=== PATIENT | female | born 1965 | race Caucasian/White ===

== ENCOUNTER 2018-11-24 12:44 | Emergency (ER) | payer SELFPAY | END 2018-11-24 13:11 | disposition home or self-care (01) | LOC: MADERS 12:44 | DX: L72.9 Follicular cyst of the skin and subcutaneous tissue, unspecified (principal); L08.9 Local infection of the skin and subcutaneous tissue, unspecified | CPT/HCPCS: 99283 ==

== ENCOUNTER 2022-09-24 20:55 | Emergency (ER) | payer SELFPAY ==
[2022-09-24] MEDS ORDERED: Sulfameth/Trimethoprim DS 800-160mg TAB ONE (21:35)
== END 2022-09-24 21:46 | disposition left against medical advice (07) ==
LOC: MADERS 20:55
DX: S01.01XA Laceration without foreign body of scalp, initial encounter (principal); Z53.29 Procedure and treatment not carried out because of patient's decision for other reasons; I10 Essential (primary) hypertension; F17.210 Nicotine dependence, cigarettes, uncomplicated
CPT/HCPCS: 70450

== ENCOUNTER 2023-01-18 18:09 | Emergency (ER) | payer OTHER, SELFPAY ==
[2023-01-18 18:54] LABS: #Basophils 0.2 thou/uL (0.0-0.2); #Eosinphils 0.3 thou/uL (0.0-0.7); #Lymphocytes 2.4 thou/uL (1.20-3.40); #Monocytes 0.6 thou/uL (0.11-0.59); %Basophils 1.8 % (0.0-1.0); %Eosinophils 3.6 % (0.0-10.0); %Lymphocytes 25.6 % (21.0-51.0); %Monocytes 6.2 % (0.0-10.0); %Neutrophils 62.9 % (42.0-75.0); Hematocrit 46.7 % (36.0-47.0); Hemoglobin 15.5 g/dL (12.0-16.0); Mean Corpuscular HGB CONC 33.1 g/dL (32.0-36.0); Mean Corpuscular Hemoglobin 28.7 pg (27.0-31.0); Mean Corpuscular Volume 86.7 fl (78.0-98.0); Mean Platelet Volume 8.3 fL (7.4-10.4); Platelet Count 327 10x3/uL (130-400); RBC Distribution Width 12.5 % (11.5-14.5); Red Blood Cell (RBC) Count 5.39 mill/uL (4.20-5.40); White Blood Cell (WBC) Count 9.5 10x3/uL (4.8-10.8)
[2023-01-18 18:58] LABS: INR-International Normal Ratio 0.9; Prothrombin Time 12.5 sec (12.0-14.7)
[2023-01-18 18:59] LABS: PTT 27.6 sec (22.9-36.1)
[2023-01-18 19:08] LABS: ALT (SGPT) 26 U/L (8-55); AST (SGOT) 29 U/L (5-34); Albumin 4.2 g/dL (3.5-5.0); Alkaline Phosphatase 129 U/L (40-110); Anion Gap 14 mmol/L (10-20); BUN (Urea Nitrogen) 36 mg/dL (9.8-20.1); Bilirubin, Total 0.7 mg/dL (0.2-1.2); Calc. Creatinine Clearance 0 mL/min (70-130); Calcium 10.4 mg/dL (7.8-10.44); Carbon Dioxide 21 mmol/L (22-29); Chloride 109 mmol/L (98-107); Estimated GFR 49; Glucose 130 mg/dL (70-105); Potassium 3.8 mmol/L (3.5-5.1); Protein, Total 7.2 g/dL (6.0-8.3); Sodium 140 mmol/L (136-145)
[2023-01-18] MEDS ORDERED: Morphine 4 MG/ML VIAL ONE (19:26)
[2023-01-18] MEDS ORDERED: Sodium Chloride 0.9% 1,000 ML ONE (19:28)
== END 2023-01-18 21:18 | disposition home or self-care (01) ==
LOC: MADERS 18:09
DX: S82.032A Displaced transverse fracture of left patella, initial encounter for closed fracture (principal); S30.0XXA Contusion of lower back and pelvis, initial encounter; S20.221A Contusion of right back wall of thorax, initial encounter; S00.81XA Abrasion of other part of head, initial encounter; I10 Essential (primary) hypertension; F17.210 Nicotine dependence, cigarettes, uncomplicated; V89.2XXA Person injured in unspecified motor-vehicle accident, traffic, initial encounter
CPT/HCPCS: 36415; 70450; 70486; 71260; 74177; 80053; 85025; 85610; 85730; 86850; 86900; 86901; 93005; 96361; 96374; J2270; J7050